=== PATIENT | male | born 1940 | race Caucasian/White ===

== ENCOUNTER 2016-06-14 10:58 | Emergency (ER) | payer OTHER, BC ==
[~2016-06-14] VITALS: Ht 175.3 cm; Wt 111.5 kg
[~2016-06-14 10:58] MED LIST: ASPIRIN81 M1 PO; Ambien PO; BENICAR HCT 401 EAC1 PO; COLACE100 MG PO; COREG6.25 M1 PO; COUMADIN5 MG PO; COZAAR50 MG PO; Colace PO; Coumadin Protocol PO; FISH OIL 1,0001 EAC7 PO; HYTRIN5 MG PO; Klor-Con M20 PO; LASIX80 MG PO; LOVASTATIN20 MG PO; Lasix PO; MULTIVITAMIN1 EAC2 PO; MULTIVITAMINS1 EA11 PO; NORCO 5/3251 TABLET PO; NORVASC10 MG PO; OMEGA 3 1,0001 EACH PO; PLAVIX75 MG PO; PRILOSEC40 MG PO; PROTONIX20 MG PO; SERTRALINE HCL50 MG PO; SIMVASTATIN20 MG PO; TOPROL XL6.25 MG PO; TRILIPIX135 MG PO; predniSONE PO
[2016-06-14 12:35] LABS: HEMATOCRIT 39.2 % (38.0-50.0); MCH 30.2 PG (29.0-34.0); MCHC 33.2 G/DL (30.0-36.0); MCV 91.2 FL (86-99); MEAN PLAT.VOLUME 9.6 uM^3 (9.0-12.4); PLATELET COUNT 133 K/uL (156-360); RBC DIS.WIDTH-CV 13.9 % (11.8-14.6); RBC DIS.WIDTH-SD 46.5 % (39-53); WHITE BLOOD COUNT 4.6 K/uL (4.1-10.2)
[2016-06-14 12:43] LABS: CHLORIDE 103 mEq/L (99-109); SODIUM 138 mEq/L (136-147)
[2016-06-14 12:45] LABS: GLUCOSE 106 mg/dL (70-99)
[2016-06-14 12:46] LABS: ANION GAP 11 MEQ/L (2-14)
[2016-06-14 12:49] LABS: GFR ESTIMATE (CALCULATED) 42 mL/min/
[2016-06-14 12:50] LABS: UREA NITROGEN (BUN) 35 mg/dL (9-23)
[2016-06-14 12:56] LABS: TROP-I INTERPRETATION NEGATIVE; TROPONIN-I 0.05 ng/mL (0.0-0.30)
[2016-06-14 13:19] LABS: ADD MIUA? YES; BILIRUBIN NEGATIVE; BLOOD MODERATE; COLOR YELLOW ((YELLOW)); GLUCOSE (STRIP) NEGATIVE; KETONES NEGATIVE; LEUKOCYTES TRACE; NITRITE NEGATIVE; PROTEIN (STRIP) 30; SPECIFIC GRAVITY 1.011 (1.000-1.030); UROBILINOGEN 0.2 MG/DL (0.2-1.0)
[2016-06-14 13:25] LABS: BACTERIA RARE /HPF; EPITHELIAL CELLS NONE SEEN /HPF; MUCUS TRACE /LPF; WHITE BLOOD CELLS 0-5 /HPF (0-5)
[2016-06-14 13:37] LABS: ABS NEUTROPHIL COUNT 3.6; ANISOCYTOSIS 1+; ATYPICAL LYMPHOCYTE 1.8 %; BAND NEUTROPHILS 15.2 % (0-8.0); EOSINOPHIL ABS CT 0; INSTRUMENT ABS NEUTROPHIL CT 3.6 K/uL; LYMPHOCYTES 14.3 % (15.0-45.0); METAMYELOCYTES 1.8 %; MICROCYTOSIS 1+; PLAT.SUFFICIENCY DECREASED; SEG.NEUTROPHILS 62.5 % (46.0-76.0)
[2016-06-14 13:47] VITALS: BP 104/61
== END 2016-06-14 13:48 | disposition home or self-care (01) ==
LOC: EME 10:58
PROVIDERS: Emergency Medicine
DX: R50.9 Fever, unspecified (principal); I25.2 Old myocardial infarction; E78.5 Hyperlipidemia, unspecified; G47.30 Sleep apnea, unspecified; I11.0 Hypertensive heart disease with heart failure; I50.9 Heart failure, unspecified; Z95.1 Presence of aortocoronary bypass graft; Z79.01 Long term (current) use of anticoagulants; Z79.82 Long term (current) use of aspirin
CPT/HCPCS: 71010; 80048; 81003; 83880; 84484; 85025; 93005; 99281; 99284

== ENCOUNTER 2016-06-16 10:10 | Observation (INO) | payer OTHER, BC ==
[~2016-06-16] VITALS: Ht 175.3 cm; Wt 110.0 kg
[2016-06-16 10:51] LABS: HEMATOCRIT 36.4 % (38.0-50.0); MCHC 33.2 G/DL (30.0-36.0); MCV 90.1 FL (86-99); MEAN PLAT.VOLUME 9.4 uM^3 (9.0-12.4); PLATELET COUNT 148 K/uL (156-360); RBC DIS.WIDTH-CV 13.9 % (11.8-14.6); RBC DIS.WIDTH-SD 45.6 % (39-53); RED BLOOD COUNT 4.04 M/uL (4.00-5.50); WHITE BLOOD COUNT 6.2 K/uL (4.1-10.2)
[2016-06-16 10:58] LABS: CHLORIDE 103 mEq/L (99-109); POTASSIUM 4.7 mEq/L (3.7-5.4); SODIUM 134 mEq/L (136-147)
[2016-06-16 11:00] LABS: GLUCOSE 110 mg/dL (70-99)
[2016-06-16 11:01] LABS: ANION GAP 9 MEQ/L (2-14)
[2016-06-16 11:04] LABS: GFR ESTIMATE (CALCULATED) 42 mL/min/
[2016-06-16 11:05] LABS: UREA NITROGEN (BUN) 38 mg/dL (9-23)
[2016-06-16 11:28] LABS: EOSINOPHIL (%) 0.3 % (0-5); IMMATURE GRANULOCYTE (%) 0.3 % (0.0-0.7); INSTRUMENT ABS NEUTROPHIL CT 4.7 K/uL; LYMPHOCYTE COUNT 0.9 K/uL (1.0-2.8); MONOCYTE (%) 7.8 % (3-12); MONOCYTE COUNT 0.5 K/uL (0-0.8); NEUTROPHIL (%) 76.6 % (45-76); NEUTROPHIL COUNT 4.7 K/uL (1.8-6.4)
[2016-06-16 11:53] LABS: ADD MIUA? YES; BILIRUBIN NEGATIVE; BLOOD MODERATE; COLOR YELLOW ((YELLOW)); GLUCOSE (STRIP) NEGATIVE; KETONES NEGATIVE; LEUKOCYTES NEGATIVE; NITRITE NEGATIVE; PROTEIN (STRIP) NEGATIVE; SPECIFIC GRAVITY 1.016 (1.000-1.030); UROBILINOGEN 0.2 MG/DL (0.2-1.0)
[2016-06-16 12:01] LABS: BACTERIA NONE SEEN /HPF; EPITHELIAL CELLS RARE /HPF; MUCUS NONE SEEN /LPF; UCUL ADDED? NO; WHITE BLOOD CELLS 0-5 /HPF (0-5)
[2016-06-16] MEDS ORDERED: COREG12.5 M1 PO (12:53)
[2016-06-16] MEDS ORDERED: ASPIRIN EC325 MG PO (12:53)
[2016-06-16] MEDS ORDERED: LASIX40 MG PO (12:54)
[2016-06-16] MEDS ORDERED: SIMVASTATIN20 MG PO (12:55)
[2016-06-16] MEDS ORDERED: KLOR-CON M2020 MEQ PO (12:55)
[2016-06-16] MEDS ORDERED: LORATADINE10 M2 PO (12:56)
[2016-06-16 15:13] VITALS: BP 108/65
== END 2016-06-16 13:15 | disposition home or self-care (01) ==
LOC: EME 10:10 → EDOF 12:57
PROVIDERS: Emergency Medicine
DX: R50.9 Fever, unspecified (principal); I25.5 Ischemic cardiomyopathy; I13.0 Hypertensive heart and chronic kidney disease with heart failure and stage 1 through stage 4 chronic kidney disease, or unspecified chronic kidney disease; N18.9 Chronic kidney disease, unspecified; I50.9 Heart failure, unspecified; I48.0 Paroxysmal atrial fibrillation; G47.30 Sleep apnea, unspecified; E78.5 Hyperlipidemia, unspecified; I25.2 Old myocardial infarction; Z95.1 Presence of aortocoronary bypass graft; Z95.3 Presence of xenogenic heart valve; Z95.810 Presence of automatic (implantable) cardiac defibrillator; I25.10 Atherosclerotic heart disease of native coronary artery without angina pectoris
CPT/HCPCS: 71020; 80048; 81003; 83605; 85025; 93306; 99281; 99284; G0378

== ENCOUNTER 2017-04-10 11:53 | Inpatient (IN) | payer OTHER, BC ==
[~2017-04-10] VITALS: Ht 172.7 cm; Wt 114.8 kg
[~2017-04-10 11:53] MED LIST changes: +COREG12.5 M1 PO; +COZAAR100 MG PO; -COZAAR50 MG PO; +KLOR-CON M2020 MEQ PO; +LASIX40 MG PO; +LORATADINE10 M2 PO; +LOW DOSE ASPIRI81 M1 PO
[2017-04-10 13:15] LABS: BASOPHIL (%) 0.2 % (0-1); EOSINOPHIL (%) 0 % (0-5); HEMOGLOBIN 12.9 G/DL (12.5-16.6); IMMATURE GRANULOCYTE (%) 0.3 % (0.0-0.7); LYMPHOCYTE (%) 4.8 % (15-42); LYMPHOCYTE COUNT 0.6 K/uL (1.0-2.8); MCH 30.6 PG (29.0-34.0); MCHC 33.1 G/DL (30.0-36.0); MCV 92.6 FL (86-99); MONOCYTE (%) 3.7 % (3-12); MONOCYTE COUNT 0.5 K/uL (0-0.8); NEUTROPHIL COUNT 11.4 K/uL (1.8-6.4); PLATELET COUNT 133 K/uL (156-360); RBC DIS.WIDTH-CV 13.6 % (11.8-14.6); RBC DIS.WIDTH-SD 45.9 % (39-53); RED BLOOD COUNT 4.21 M/uL (4.00-5.50); WHITE BLOOD COUNT 12.6 K/uL (4.1-10.2)
[2017-04-10 13:16] LABS: CARBON DIOXIDE (BICARBONATE) 31.7 MEQ/L (20-31)
[2017-04-10 13:23] LABS: ALBUMIN 4.1 g/dL (3.2-4.8)
[2017-04-10 13:24] LABS: CHLORIDE 100 mEq/L (99-109); POTASSIUM 4.3 mEq/L (3.7-5.4); SODIUM 137 mEq/L (136-147)
[2017-04-10 13:26] LABS: GLUCOSE 157 mg/dL (70-99)
[2017-04-10 13:29] LABS: ALKALINE PHOSPHATASE 43 IU/L (3-129)
[2017-04-10 13:30] LABS: CREATININE 1.6 mg/dL (0.6-1.3); GFR ESTIMATE (CALCULATED) 45 mL/min/ (58.99-99999)
[2017-04-10 13:31] LABS: AST (GOT) 23 IU/L (2-34); UREA NITROGEN (BUN) 29 mg/dL (9-23)
[2017-04-10 13:33] LABS: ALT (GPT) 19 IU/L (3-49); LIPASE 23 U/L (1.0-51.0)
[2017-04-10 13:36] LABS: TROP-I INTERPRETATION NEGATIVE; TROPONIN-I 0.09 ng/mL (0.0-0.30)
[2017-04-10 15:50] LABS: APPEARANCE CLEAR ((CLEAR)); BILIRUBIN NEGATIVE; BLOOD LARGE; COLOR YELLOW ((YELLOW)); GLUCOSE (STRIP) NEGATIVE; KETONES NEGATIVE; LEUKOCYTES NEGATIVE; NITRITE NEGATIVE; PROTEIN (STRIP) 30; SPECIFIC GRAVITY 1.023 (1.000-1.030); UROBILINOGEN 0.2 MG/DL (0.2-1.0)
[2017-04-10 16:01] LABS: BACTERIA NONE SEEN /HPF; EPITHELIAL CELLS NONE SEEN /HPF; HYALINE CASTS 0-5 /LPF; MUCUS NONE SEEN /LPF; RED BLOOD CELLS 40-50 /HPF (0-5); UCUL ADDED? NO; WHITE BLOOD CELLS 0-5 /HPF (0-5)
[2017-04-10] MEDS ORDERED: XARELTO15 MG PO (16:21)
[2017-04-10 19:44] LABS: BASE EXCESS -5.1 mEq/L (-3 to +3); BICARBONATE 24.3 mEq/L (22-26); COMMENTS - BLOOD GASES C+A+; DEVICE NC; METHEMOGLOBIN 0.9 % (0-1.5); O2 FLOW 5 L/MIN; PCO2 65 mm Hg (35-45); PO2 50 mm Hg (80-100); SITE LR; pH 7.18 (7.35-7.45)
[2017-04-10 20:28] LABS: BASE EXCESS -4.2 mEq/L (-3 to +3); CARBOXY HGB 1.7 % (0-5)
[2017-04-10 20:29] LABS: COMMENTS - BLOOD GASES C+A+; DEVICE 840 VENT; FI02 60 %; MECHANICAL RATE 16 resp/min; MODE AC; PCO2 50 mm Hg (35-45); PEEP 5 CM/H20; PO2 123 mm Hg (80-100); SITE LR; TIDAL VOLUME 550 ML; TOTAL RESP RATE 16 resp/min; pH 7.27 (7.35-7.45)
[2017-04-10 22:50] VITALS: BP 116/63
[2017-04-10 23:00] VITALS: BP 122/76
[2017-04-10 23:30] VITALS: BP 117/71
[2017-04-11] VITALS (19 sets, daily range): BP systolic 102–173; BP diastolic 61–97
[2017-04-11 05:31] LABS: MCH 30.5 PG (29.0-34.0); MCHC 32.4 G/DL (30.0-36.0); MCV 94.1 FL (86-99); PLATELET COUNT 118 K/uL (156-360); RBC DIS.WIDTH-SD 47.6 % (39-53); RED BLOOD COUNT 3.93 M/uL (4.00-5.50); WHITE BLOOD COUNT 13.2 K/uL (4.1-10.2)
[2017-04-11 06:00] LABS: CHLORIDE 107 MEQ/L (99-109); CREATININE 1.6 MG/DL (0.6-1.3); GFR ESTIMATE (CALCULATED) 45 mL/min/ (58.99-99999); GLUCOSE 177 mg/dL (70-99); POTASSIUM 3.9 MEQ/L (3.7-5.4); SODIUM 140 MEQ/L (136-147); UREA NITROGEN (BUN) 31 mg/dL (9-23)
[2017-04-12] VITALS (20 sets, daily range): BP systolic 129–163; BP diastolic 69–124
[2017-04-13 06:56] VITALS: BP 144/68
[2017-04-13 08:43] LABS: BASOPHIL (%) 0.2 % (0-1); EOSINOPHIL (%) 0.1 % (0-5); HEMOGLOBIN 11.8 G/DL (12.5-16.6); IMMATURE GRANULOCYTE (%) 0.7 % (0.0-0.7); LYMPHOCYTE (%) 16.9 % (15-42); LYMPHOCYTE COUNT 1.6 K/uL (1.0-2.8); MCH 30.4 PG (29.0-34.0); MCHC 32.8 G/DL (30.0-36.0); MCV 92.8 FL (86-99); MONOCYTE (%) 7.2 % (3-12); MONOCYTE COUNT 0.7 K/uL (0-0.8); NEUTROPHIL (%) 74.9 % (45-76); PLATELET COUNT 139 K/uL (156-360); RBC DIS.WIDTH-CV 14.1 % (11.8-14.6); RBC DIS.WIDTH-SD 47.8 % (39-53); RED BLOOD COUNT 3.88 M/uL (4.00-5.50); WHITE BLOOD COUNT 9.4 K/uL (4.1-10.2)
[2017-04-13 09:06] LABS: CHLORIDE 110 MEQ/L (99-109); CREATININE 1.3 MG/DL (0.6-1.3); GFR ESTIMATE (CALCULATED) 57 mL/min/ (58.99-99999); GLUCOSE 150 mg/dL (70-99); MAGNESIUM 2.4 mg/dl (1.3-2.7); POTASSIUM 4.1 MEQ/L (3.7-5.4); SODIUM 143 MEQ/L (136-147); UREA NITROGEN (BUN) 34 mg/dL (9-23)
[2017-04-13 15:20] VITALS: BP 140/71
[2017-04-13 20:03] VITALS: BP 167/76
[2017-04-13 21:30] VITALS: BP 164/70
[2017-04-13 23:44] VITALS: BP 165/72
[2017-04-14] VITALS (7 sets, daily range): BP systolic 127–179; BP diastolic 64–89
[2017-04-15 03:40] VITALS: BP 152/90
[2017-04-15 06:28] LABS: BASOPHIL (%) 0.4 % (0-1); EOSINOPHIL (%) 4.2 % (0-5); EOSINOPHIL COUNT 0.3 K/uL (0-0.3); HEMOGLOBIN 11.3 G/DL (12.5-16.6); IMMATURE GRANULOCYTE (%) 1.8 % (0.0-0.7); LYMPHOCYTE (%) 20.3 % (15-42); LYMPHOCYTE COUNT 1.7 K/uL (1.0-2.8); MCH 30.8 PG (29.0-34.0); MCHC 33.2 G/DL (30.0-36.0); MCV 92.6 FL (86-99); MONOCYTE COUNT 0.7 K/uL (0-0.8); NEUTROPHIL (%) 65.3 % (45-76); NEUTROPHIL COUNT 5.3 K/uL (1.8-6.4); PLATELET COUNT 141 K/uL (156-360); RBC DIS.WIDTH-CV 13.6 % (11.8-14.6); RBC DIS.WIDTH-SD 45.9 % (39-53); RED BLOOD COUNT 3.67 M/uL (4.00-5.50); WHITE BLOOD COUNT 8.1 K/uL (4.1-10.2)
[2017-04-15 06:45] VITALS: BP 118/84
[2017-04-15 06:59] LABS: CHLORIDE 107 MEQ/L (99-109); CREATININE 1.2 MG/DL (0.6-1.3); GFR ESTIMATE (CALCULATED) > 59 mL/min/ (58.99-99999); GLUCOSE 115 mg/dL (70-99); SODIUM 142 MEQ/L (136-147); UREA NITROGEN (BUN) 24 mg/dL (9-23)
[2017-04-15 11:00] VITALS: BP 170/88
[2017-04-15 15:30] VITALS: BP 147/75
[2017-04-15 20:05] VITALS: BP 145/97
[2017-04-15 23:42] VITALS: BP 145/97; BP 159/92
[2017-04-16 04:05] VITALS: BP 159/87
[2017-04-16 05:56] LABS: BASOPHIL (%) 0.4 % (0-1); EOSINOPHIL (%) 4.5 % (0-5); EOSINOPHIL COUNT 0.4 K/uL (0-0.3); HEMATOCRIT 35.7 % (38.0-50.0); HEMOGLOBIN 11.6 G/DL (12.5-16.6); IMMATURE GRANULOCYTE (%) 1.7 % (0.0-0.7); LYMPHOCYTE (%) 15.6 % (15-42); LYMPHOCYTE COUNT 1.5 K/uL (1.0-2.8); MCH 29.6 PG (29.0-34.0); MCHC 32.5 G/DL (30.0-36.0); MCV 91.1 FL (86-99); MONOCYTE (%) 6.3 % (3-12); MONOCYTE COUNT 0.6 K/uL (0-0.8); NEUTROPHIL (%) 71.5 % (45-76); PLATELET COUNT 175 K/uL (156-360); RBC DIS.WIDTH-CV 13.5 % (11.8-14.6); RBC DIS.WIDTH-SD 44.5 % (39-53); RED BLOOD COUNT 3.92 M/uL (4.00-5.50); WHITE BLOOD COUNT 9.8 K/uL (4.1-10.2)
[2017-04-16 06:19] LABS: CREATININE 1.2 MG/DL (0.6-1.3); GFR ESTIMATE (CALCULATED) > 59 mL/min/ (58.99-99999); GLUCOSE 123 mg/dL (70-99); UREA NITROGEN (BUN) 22 mg/dL (9-23)
[2017-04-16 06:21] LABS: CHLORIDE 106 MEQ/L (99-109); POTASSIUM 4.1 MEQ/L (3.7-5.4); SODIUM 142 MEQ/L (136-147)
[2017-04-16 07:20] VITALS: BP 158/83
[2017-04-16 11:00] VITALS: BP 137/73
[2017-04-16 15:00] VITALS: BP 144/74
[2017-04-16 19:19] VITALS: BP 163/73
[2017-04-17 00:02] VITALS: BP 138/63
[2017-04-17 06:01] LABS: HEMATOCRIT 34.7 % (38.0-50.0); HEMOGLOBIN 11.4 G/DL (12.5-16.6); MCH 29.8 PG (29.0-34.0); MCHC 32.9 G/DL (30.0-36.0); MCV 90.8 FL (86-99); PLATELET COUNT 197 K/uL (156-360); RBC DIS.WIDTH-CV 13.6 % (11.8-14.6); RBC DIS.WIDTH-SD 44.6 % (39-53); RED BLOOD COUNT 3.82 M/uL (4.00-5.50); WHITE BLOOD COUNT 7.5 K/uL (4.1-10.2)
[2017-04-17 06:28] LABS: CHLORIDE 107 MEQ/L (99-109); CREATININE 1.2 MG/DL (0.6-1.3); GFR ESTIMATE (CALCULATED) > 59 mL/min/ (58.99-99999); GLUCOSE 115 mg/dL (70-99); POTASSIUM 4.7 MEQ/L (3.7-5.4); SODIUM 142 MEQ/L (136-147); UREA NITROGEN (BUN) 20 mg/dL (9-23)
[2017-04-17 06:34] LABS: BASOPHIL (%) 0.7 % (0-1); BASOPHIL COUNT 0.1 K/uL (0-0.1); EOSINOPHIL COUNT 0.5 K/uL (0-0.3); LYMPHOCYTE (%) 22.4 % (15-42); LYMPHOCYTE COUNT 1.7 K/uL (1.0-2.8); MONOCYTE (%) 8.6 % (3-12); MONOCYTE COUNT 0.7 K/uL (0-0.8); NEUTROPHIL (%) 59.3 % (45-76); NEUTROPHIL COUNT 4.5 K/uL (1.8-6.4)
[2017-04-17 07:33] VITALS: BP 168/94
[2017-04-17] MEDS ORDERED: PEN-VEE K,VEET500 MG PO ×2 (11:29→12:50)
== END 2017-04-17 13:26 | disposition home health service (06) | DRG 871 ==
LOC: EME 11:53 → 4WEST 18:23 → EDOF 18:23 → ENRESERV 18:30 → EDOF 20:03 → ENRESERV 21:50 → 4WEST 22:40 → ENRESERV 04-12 15:28 → 5EAST 04-12 17:32 → ENPENDDIS 04-17 → 5EAST 04-17 13:26
PROVIDERS: Emergency Medicine; Hospitalist; Internal Medicine; Physician Assistant; Surgery
PROC: 0BH17EZ Insertion of Endotracheal Airway into Trachea, Via Natural or Artificial Opening (ICD-10-PCS; principal; 2017-04-10)
PROC: 5A1935Z Respiratory Ventilation, Less than 24 Consecutive Hours (ICD-10-PCS; principal; 2017-04-10)
PROC: 00JU3ZZ Inspection of Spinal Canal, Percutaneous Approach (ICD-10-PCS; principal; 2017-04-10)
DX: A41.81 Sepsis due to Enterococcus (principal); J96.01 Acute respiratory failure with hypoxia; J96.02 Acute respiratory failure with hypercapnia; I38 Endocarditis, valve unspecified; R65.21 Severe sepsis with septic shock; I13.0 Hypertensive heart and chronic kidney disease with heart failure and stage 1 through stage 4 chronic kidney disease, or unspecified chronic kidney disease; I50.23 Acute on chronic systolic (congestive) heart failure; E87.2 Acidosis; G93.40 Encephalopathy, unspecified; N18.3 Chronic kidney disease, stage 3 (moderate); I48.0 Paroxysmal atrial fibrillation; D69.6 Thrombocytopenia, unspecified; I25.5 Ischemic cardiomyopathy; I34.0 Nonrheumatic mitral (valve) insufficiency; I25.10 Atherosclerotic heart disease of native coronary artery without angina pectoris; R31.9 Hematuria, unspecified; E78.5 Hyperlipidemia, unspecified; G47.33 Obstructive sleep apnea (adult) (pediatric); E66.01 Morbid (severe) obesity due to excess calories; I25.2 Old myocardial infarction; Z95.1 Presence of aortocoronary bypass graft; Z95.3 Presence of xenogenic heart valve; Z95.810 Presence of automatic (implantable) cardiac defibrillator; Z79.01 Long term (current) use of anticoagulants; Z79.82 Long term (current) use of aspirin; N17.9 Acute kidney failure, unspecified
CPT/HCPCS: 36600; 70450; 71045; 71046; 76937; 80048; 80053; 80202; 81003; 82140; 82803; 82945; 83605; 83690; 83735; 83880; 84157; 84484; 85025; 85027; 87040; 87070; 87077; 87186; 87205; 87502; 87529 90; 87641; 87801; 89051; 93005; 93312; 94002; 94003; 94640; 94640 76; 94660; 94799; 97530 GO; 99202; 99281; 99285; J0290; J0360; J0692; J0696; J1940; J2250; J2704; J2930; J3010; J3370; J7030; J7050; S0028